=== PATIENT | male | born 1985 | race Caucasian/White ===

== ENCOUNTER → 2020-08-12 14:30 | Outpatient (BNVA) | payer OTHER, MEDICAID, SELFPAY | PROVIDERS: Visit Provider Nurse Practitioner Psychiatric/Mental Health | DX: F10.20 Alcohol dependence, uncomplicated (principal); F11.90 Opioid use, unspecified, uncomplicated | CPT/HCPCS: 99204 ==

== ENCOUNTER 2025-01-09 10:03 | Outpatient (AMB) | payer OTHER, SELFPAY ==
[2025-01-09 08:23] VITALS: BP 160/80; PULSE 79; RESP 19; O2SAT 98
--- NOTE | 2025-01-09 10:36 | A.OFFVISCC_ITS ---
Vital Signs 01/09/25 08:23 BP 160/80 H Blood Pressure Location Rt brachial Position Sitting Respiration 19 Pulse 79 Pulse Source Pulse Oximeter Pulse Oximetry (%) 98 Oxygen Delivery Method Room Air Intake Visit Reasons: Intake Allergies No Known Allergies Allergy (Verified 08/19/20 09:18) HPI HPI Intake: Details: Patient presents as walk in for evaluation and treatment of opioid use Reports he is using 3 grams opiates daily Last use last evening -2 bundles Treatment History : 2 years ago OD requiring narcan 2019 he sought treatment at [facility] for OUD, but did not want any MOUD, requested comfort meds and managed withdrawal at home with these 19 months no substance use after this He trialed methadone, but states he did not like it and does not wish to have this be an option for treatment He reports that he has abstained from alcohol for 4 years Social: Lives in [place] with [employer] company He presents as slightly irritable due to withdrawal and frustration that there are no easier options for getting off of fentanyl 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 Reports that sleep is not good poor appetite, anxiety, chills, body aches, irritability Review of Systems Const Reports as per HPI Physical Exam Vital Signs: Last Vital Signs Pulse 79 01/09/25 08:23 Resp 19 01/09/25 08:23 BP 160/80 H 01/09/25 08:23 Pulse Ox 98 01/09/25 08:23 Oxygen Delivery Method Room Air 01/09/25 08:23 Const General: awake and diaphoretic Nutritional Appearance: average body habitus Orientation/consciousness: patient oriented x3 Limitations: no limitations Neuro General: patient oriented x3 Psych Appearance: grossly normal Speech and movement: Clear speech present Affect: Irritable affect present Attitude: cooperative Thought process: Circumstantial thought process present Insight: Fair insight present (Psych) Judgement: Fair judgement present (Psych) Results Reviewed Results Reviewed: Laboratory Last Values POC Urine Buprenorphine Negative 01/09/25 08:24 POC Urine Morphine Positive 01/09/25 08:24 POC Urine Oxycodone Negative 01/09/25 08:24 POC Urine Methadone Negative 01/09/25 08:24 POC Urine Propoxyphene Negative 01/09/25 08:24 POC Urine Barbiturates Negative 01/09/25 08:24 POC U Tricyclic Antidpr Negative 01/09/25 08:24 POC Urine PCP Negative 01/09/25 08:24 POC Ur Amphetamines Negative 01/09/25 08:24 POC Ur Methamphetamine Negative 01/09/25 08:24 POC Urine MDMA Negative 01/09/25 08:24 POC Ur Benzodiazepine Positive 01/09/25 08:24 POC Urine Cocaine Negative 01/09/25 08:24 POC Ur Marijuana (THC) Negative 01/09/25 08:24 PFS Surgical History (Updated 08/19/20 @ 09:19 by Carline Mcgowan, MARIE, KRISTA) No pertinent past surgical history Family History (Updated 08/19/20 @ 09:21 by Carline Mcgowan, MARIE, KRISTA) Father ETOH abuse Substance abuse Mother HIV (human immunodeficiency virus infection) Sister No problems noted. Assessment & Plan Assessment & Plan (1) Opioid use disorder: Code(s): F11.99 - Opioid use, unspecified with unspecified opioid-induced disorder Category: Medical Plan: * reviewed options for starting buprenorphine and challenges. In the end agreeable to macro dose induction * comfort meds ordered * overdose prevention discussion * labs at next visit Orders: Orders AMB 14 Panel Urine Drug Screen 01/09/25 F11.99 - Opioid use, unspecified with unspecified opioid-induced disorder Medications: New trazodone 50 mg PO BEDTIME 14 tabs 0RF buprenorphine-naloxone 8-2 mg (Suboxone) 1 film buccal TID 42 ea 1RF clonidine HCl 0.1 mg PO TID 20 tabs 0RF MAT Intake Nursing Intake Reason for visit: I need to get off fentanyl Are you currently using?: Yes What are you taking?: Fentanyl and heroine When was your last use?: night before office visit How much?: 2 bags 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 What is your current relationship status?: States having a girlfriend Current PCP: Dont know his name, its here somewhere Date of last visit: >5 years Substance Abuse History Substance Abuse History (includes route, frequency and quantity): Heroin, Fentanyl, Methadone and Oxycodone product Age of first use: 14 years old Details: Social History Domestic Violence concerns: Denies Children: No Do you have a support system?: Yes his girlfriend Current mode of transportation?: Drives Where are you currently residing?: [place] IV Drug Use Have you ever shared needles?: No Have you ever belonged to a needle exchange program?: No Do you buy needles at a pharmacy?: No Have you ever overdosed?: Yes Number of lifetime overdoses: 1 Have you ever been hospitalized for an overdose?: Yes Was Naloxone administered?: Yes Recovery History Have you had any periods of recovery?: Yes What is your longest time in recovery?: 19 months in 2019 Have you ever had inpatient treatment for your substance abuse disorder?: Yes Have you been in an inpatient detoxification program?: Yes Have you been in an inpatient Rehab/Residential house?: No Have you been in an outpatient Methadone Maintenance program?: Yes Have you been in an outpatient Suboxone Maintenance program?: No Have you been in an AA/NA support program?: No Have you had a Recovery Support Medical Reviewer?: No Have you had Peer Support?: No Behavioral Health History Do you have a current provider? If so, who?: denies diagnosis: Anxiet, depression then states I dont know, theres other things too History of inpatient psychiatric hospitalization? If so, how many? Most Recent? Where?: Denies History of self harming thoughts?: No History of homicidal or suicidal intentions?: No Medical Conditions Endocarditis?: No Skin Infection: No Seizure related to withdrawal or overdose: No Head or brain injury: No Hepatitis A (if yes, have you been treated?): No Hepatitis B (if yes, have you been treated?): No Hepatitis C (if yes, have you been treated?): No HIV (if yes, have you been treated?): No TB (if yes, have you been treated?): No Other: No Details: Patient was not very open with questions, kept saying no, Im just here for the drugs why so many questions?
== END 2025-01-09 11:07 | disposition home or self-care (01) ==
PROVIDERS: Visit Provider Nurse Practitioner Psychiatric/Mental Health
DX: F11.99 Opioid use, unspecified with unspecified opioid-induced disorder (principal)

== ENCOUNTER → 2025-01-09 10:03 | Outpatient (BNVA) | payer OTHER, SELFPAY | PROVIDERS: Visit Provider Nurse Practitioner Psychiatric/Mental Health | DX: F11.99 Opioid use, unspecified with unspecified opioid-induced disorder (principal) | CPT/HCPCS: 80307; 99212 ==